=== PATIENT | female | born 1985 | race Caucasian/White ===

== ENCOUNTER 2017-03-15 05:58 | Inpatient (IN) | payer OTHER, MEDICAID ==
[~2017-03-15] VITALS: Ht 162.6 cm; Wt 92.8 kg
[2017-03-15] MEDS ORDERED: LACTATED RINGERS 1,000 ML IVBOLUS ONE (06:00)
[2017-03-15] MEDS ORDERED: METOCLOPRAMIDE 5 MG/ML, 2ML IV ONE (06:00)
[2017-03-15] MEDS ORDERED: SODIUM CITRATE/CITRIC ACID 30 ML UDC PO ONE (06:00)
[2017-03-15] MEDS ORDERED: OXYTOCIN 30U/ 0.9% NaCL 500ML 500 ML IV SCH ×2 (06:00→08:34)
[2017-03-15] MEDS ORDERED: LACTATED RINGERS 1,000 ML IV SCH ×3 (06:00→08:34)
[2017-03-15 06:06] VITALS: BP 128/85
[2017-03-15] MEDS ORDERED: NEWBORN KIT ONE (06:16)
[2017-03-15] MEDS ORDERED: PREN-3 PO (06:29)
[2017-03-15] MEDS ORDERED: FLU VACC QS2017-18 (36MOS+) UP/PF 0.5 ML IM-VACC ONE (06:30)
[2017-03-15] MEDS ORDERED: HYDR50TA13 PO (06:31)
[2017-03-15 06:41] LABS: HEMATOCRIT 42.4 % (34.6-47.8); HEMOGLOBIN 14.8 g/dL (11.7-16.4); WHITE BLOOD COUNT 9.2 x10^3/uL (3.4-10)
[2017-03-15] MEDS ORDERED: OXYTOCIN 30U/ 0.9% NaCL 500ML 500 ML ONE (07:05)
[2017-03-15] MEDS ORDERED: METOCLOPRAMIDE 5 MG/ML, 2ML ONE ×2 (07:05→07:31)
[2017-03-15] MEDS ORDERED: SODIUM CITRATE/CITRIC ACID 30 ML UDC ONE ×2 (07:05→07:31)
[2017-03-15] MEDS ORDERED: EPHEDRINE 50 MG/ML, 1ML IVPush PRN (07:30)
[2017-03-15] MEDS ORDERED: FENTANYL PF 100 MCG/2ML IV PRN (07:30)
[2017-03-15] MEDS ORDERED: OXYcodone 5 MG/5 ML ORAL.SOL UDC PO PRN (07:30)
[2017-03-15] MEDS ORDERED: MIDAZOLAM 1 MG/ML, 2ML IV PRN (07:30)
[2017-03-15] MEDS ORDERED: ONDANSETRON 2MG/ML, 2ML IVPush PRN (07:30)
[2017-03-15] MEDS ORDERED: EPHEDRINE 50 MG/ML, 1ML ONE (07:31)
[2017-03-15] MEDS ORDERED: KETOROLAC 30 MG/1 ML ONE (07:31)
[2017-03-15] MEDS ORDERED: CEFAZOLIN 1,000 MG ONE (07:31)
[2017-03-15] MEDS ORDERED: OXYTOCIN 10 UNITS/ML, 1ML ONE ×2 (07:31)
[2017-03-15 07:39] LABS: HIV 1&2 ANTIBODY SCREEN Nonreactive (Nonreactive); HIV-1 p24 ANTIGEN Nonreactive (Nonreactive)
[2017-03-15] MEDS ORDERED: MISOPROSTOL 200 MCG TABLET ONE (08:20)
[2017-03-15] MEDS: LACTATED RINGERS 1,000 ML IV SCH ×2 (08:34→16:34)
[2017-03-15] MEDS ORDERED: CARBOPROST TROMETHAMINE 250 MCG/ML, 1ML IM PRN (09:00)
[2017-03-15] MEDS ORDERED: METHYLERGONOVINE 0.2 MG/ML IM PRN (09:00)
[2017-03-15] MEDS: PRENATAL VIT/IRON/FA 1 EACH TABLET PO SCH (09:00)
[2017-03-15] MEDS ORDERED: MISOPROSTOL 200 MCG TABLET PR PRN (09:00)
[2017-03-15] MEDS ORDERED: ACETAMINOPHEN 325 MG TABLET PO PRN (09:00)
[2017-03-15] MEDS ORDERED: FLU VACCINE PER PHARMACY IM SCH (09:00)
[2017-03-15] MEDS ORDERED: morphine SULFATE 10 MG/ML, 1ML IVPush PRN (09:00)
[2017-03-15] MEDS ORDERED: morphine SULFATE 10 MG/ML, 1ML ONE (09:04)
[2017-03-15] MEDS: morphine SULFATE 10 MG/ML, 1ML IV PRN ×5 (09:09→09:59)
[2017-03-15 11:00] VITALS: BP_SYST 117
[2017-03-15] MEDS: OXYcodone/APAP 5/325MG TABLET PO PRN ×3 (11:27→22:01)
[2017-03-15] MEDS: IBUPROFEN 600 MG TABLET PO PRN ×2 (14:03→21:05)
[2017-03-15] MEDS: ONDANSETRON 2MG/ML, 2ML IV PRN ×2 (15:32→22:01)
[2017-03-15 15:45] LABS: HEMATOCRIT 43.6 % (34.6-47.8); HEMOGLOBIN 14.8 g/dL (11.7-16.4); WHITE BLOOD COUNT 14.9 x10^3/uL (3.4-10)
[2017-03-15 15:50] VITALS: BP 116/76
[2017-03-15 20:40] VITALS: BP 107/70
[2017-03-15] MEDS: hydrOXyzine 50MG TABLET PO SCH (21:05)
[2017-03-15] MEDS: DOCUSATE 100 MG CAPSULE PO PRN (21:05)
[2017-03-15 23:51] VITALS: BP 110/72
[2017-03-16] MEDS: LACTATED RINGERS 1,000 ML IV SCH (00:34)
[2017-03-16] MEDS: OXYcodone/APAP 5/325MG TABLET PO PRN ×6 (02:03→22:02)
[2017-03-16] MEDS: IBUPROFEN 600 MG TABLET PO PRN ×3 (05:35→17:48)
[2017-03-16 08:20] VITALS: BP 111/75
[2017-03-16] MEDS: DOCUSATE 100 MG CAPSULE PO PRN ×2 (09:50→22:02)
[2017-03-16] MEDS: PRENATAL VIT/IRON/FA 1 EACH TABLET PO SCH (09:51)
[2017-03-16] MEDS ORDERED: DOCUSATE 100 MG CAPSULE ONE (09:54)
[2017-03-16 19:45] VITALS: BP 125/89
[2017-03-16] MEDS: hydrOXyzine 50MG TABLET PO SCH (22:02)
[2017-03-17] MEDS: IBUPROFEN 600 MG TABLET PO PRN ×3 (00:18→11:47)
[2017-03-17] MEDS: DIPHENHYDRAMINE 25 MG CAPSULE PO PRN ×2 (00:48→11:47)
[2017-03-17] MEDS ORDERED: OXYC-302 PO (03:05)
[2017-03-17] MEDS ORDERED: IBUP-1222 PO (03:06)
[2017-03-17] MEDS ORDERED: SENN-1 PO (03:08)
[2017-03-17] MEDS: OXYcodone/APAP 5/325MG TABLET PO PRN ×2 (05:53→10:48)
[2017-03-17 09:05] VITALS: BP 127/89
[2017-03-17] MEDS: PRENATAL VIT/IRON/FA 1 EACH TABLET PO SCH (09:19)
[2017-03-17] MEDS: DOCUSATE 100 MG CAPSULE PO PRN (09:19)
== END 2017-03-17 14:45 | disposition home or self-care (01) | DRG 766 ==
LOC: LDIP 05:58 → 2NW 10:43
PROVIDERS: ADMIT Obstetrics & Gynecology; ATTEND Obstetrics & Gynecology
PROC: 10D00Z1 Extraction of Products of Conception, Low, Open Approach (ICD-10-PCS; principal; 2017-03-15)
PROC: 0UB70ZZ Excision of Bilateral Fallopian Tubes, Open Approach (ICD-10-PCS; 2017-03-15)
PROC: 3E0234Z Introduction of Serum, Toxoid and Vaccine into Muscle, Percutaneous Approach (ICD-10-PCS; 2017-03-15)
DX: O34.211 Maternal care for low transverse scar from previous cesarean delivery (principal); F32.9 Major depressive disorder, single episode, unspecified; O69.81X0 Labor and delivery complicated by cord around neck, without compression, not applicable or unspecified; O99.344 Other mental disorders complicating childbirth; O99.89 Other specified diseases and conditions complicating pregnancy, childbirth and the puerperium; N73.6 Female pelvic peritoneal adhesions (postinfective); Z37.0 Single live birth; Z3A.39 39 weeks gestation of pregnancy; Z30.2 Encounter for sterilization; Z23 Encounter for immunization
CPT/HCPCS: 36415; 85025; 86592; 86703; 86762; 86850; 86900; 87340; 87899; 88302; 90686; J0690; J1885; J2405; G0435; J2270; J2590; J2765; J7120; Q0163

== ENCOUNTER 2019-03-20 08:19 | Outpatient (CLI) | payer MEDICAID ==
[~2019-03-20 08:19] MED LIST: HYDR50TA13 PO; IBUP-1222 PO; OXYC-302 PO; PREN-3 PO; SENN-92 PO
[2019-03-20] MEDS ORDERED: CHOL500015 PO (08:45)
[2019-03-20] MEDS ORDERED: CYAN25009 PO (08:45)
[2019-03-20] MEDS ORDERED: MEDR10TA PO (08:45)
[2019-03-20] MEDS ORDERED: FLUT9.9S NAS (08:45)
[2019-03-20] MEDS ORDERED: SERT100T PO (08:45)
[2019-03-20 09:05] LABS: BASOPHILS # (AUTO) 0.02 x10^3/uL (0-0.1); BASOPHILS % (AUTO) 0 % (0-1); EOSINOPHILS # (AUTO) 0.24 x10^3/uL (0-0.4); EOSINOPHILS % (AUTO) 4 % (1-7); LYMPHOCYTES # (AUTO) 2.42 x10^3/uL (1-3.4); LYMPHOCYTES % (AUTO) 35 % (22-44); MD NO; MEAN CORPUSCULAR HEMOGLOBIN 30.4 pg (27.0-34.8); MEAN CORPUSCULAR VOLUME 89.5 fL (80-100); MEAN PLATELET VOLUME 8.1 fL (7.4-10.4); MONOCYTES % (AUTO) 7 % (2-9); NEUTROPHILS % (AUTO) 54 % (42-75); PLATELET COUNT 307 x10^3/uL (130-400); RED BLOOD COUNT 5.38 x10^6/uL (3.82-5.3); RED CELL DISTRIBUTION WIDTH 12.5 % (9.6-15.2)
[2019-03-27] MEDS ORDERED: TOPI25TA32 PO (10:58)
== END 2019-03-20 23:59 | disposition home or self-care (01) ==
LOC: STAR 08:19
PROVIDERS: ATTEND Obstetrics & Gynecology
DX: Z01.818 Encounter for other preprocedural examination (principal); N93.9 Abnormal uterine and vaginal bleeding, unspecified
CPT/HCPCS: 36415; 84703; 85025